=== PATIENT | female | born 1960 | race Two or more races ===

== ENCOUNTER 2018-02-21 20:44 | Emergency (ER) | payer OTHER ==
[~2018-02-21] VITALS: Ht 152.4 cm; Wt 68.0 kg
[2018-02-21 20:56] VITALS: BP 133/84
[2018-02-21 23:14] LABS: Basophils # (auto) 0.1 uL; Basophils % (auto) 1.3 % (0.0-2.0); Eosinophils # (auto) 0.3 uL; Hematocrit 41.2 % (36.0-46.0); Hemoglobin 14.5 g/dL (12.2-16.2); Lymphocytes # (auto) 4.4 uL; Lymphocytes % (auto) 43.5 % (10.0-50.0); Mean Corpuscular Hemoglobin 30.8 pg (28.0-32.0); Mean Corpuscular Hgb Conc. 35.3 g/dL (32.0-36.0); Mean Corpuscular Volume 87.5 fL (80.0-100.0); Monocytes # (auto) 0.9 uL; Monocytes % (auto) 8.5 % (0.0-12.0); Neutrophils # (auto) 4.5 uL; Neutrophils % (auto) 43.7 % (37.0-80.0); Nucleated Red Blood Cells % 0.4 %; Platelet Count (auto) 290 10^3/uL (140-450); Red Blood Cells 4.71 10^6/uL (4.0-5.20); Red Cell Distribution Width 13.1 % (11.8-14.3); White Blood Cell 10.2 10^3/uL (4.4-10.8)
[2018-02-21 23:29] LABS: Calcium 8.9 mg/dL (8.5-10.1); Chloride 106 mmol/L (98-107); Potassium 3.7 mmol/L (3.5-5.1); Sodium 139 mmol/L (136-145)
[2018-02-21 23:32] LABS: Urine Bacteria NONE SEEN /hpf (None Seen); Urine Blood Negative /uL (Negative); Urine WBC 1 /hpf (0 - 5)
[2018-02-21 23:40] LABS: Alanine Aminotransferase 21 U/L (13-56); Albumin 4.3 g/dL (3.4-5.0); Alkaline Phosphatase 102 U/L (45-117); Anion Gap 10 (5-15); Aspartate Aminotransferase 21 U/L (15-37); BUN/Creatinine Ratio 22.4; Bilirubin, Total 0.2 mg/dL (0.2-1.0); Blood Urea Nitrogen 13 mg/dL (7-18); Carbon Dioxide 23 mmol/L (21-32); GFR African American 137 mL/min; GFR Non-African American 113 mL/min; Glucose 104 mg/dL (74-106); Magnesium 1.9 mg/dL (1.6-2.6); Total Protein 7.6 g/dL (6.4-8.2)
== END 2018-02-21 23:21 | disposition left against medical advice (07) ==
LOC: ER 20:44
DX: R20.0 Anesthesia of skin (principal); M79.602 Pain in left arm; Z53.21 Procedure and treatment not carried out due to patient leaving prior to being seen by health care provider
CPT/HCPCS: 36415; 80053; 81001; 83735; 84484; 85025; 93005

== ENCOUNTER 2018-04-29 10:03 | Day surgery (SDC) | payer MEDICARE, OTHER ==
[2018-04-28 12:42] LABS: Basophils # (auto) 0.1 uL; Basophils % (auto) 0.9 % (0.0-2.0); Eosinophils # (auto) 0.2 uL; Eosinophils % (auto) 2.7 % (0.0-7.0); Hematocrit 40.5 % (36.0-46.0); Lymphocytes # (auto) 2.7 uL; Lymphocytes % (auto) 31.7 % (10.0-50.0); Mean Corpuscular Hemoglobin 30.7 pg (28.0-32.0); Mean Corpuscular Hgb Conc. 34.7 g/dL (32.0-36.0); Mean Corpuscular Volume 88.5 fL (80.0-100.0); Monocytes # (auto) 0.7 uL; Monocytes % (auto) 7.7 % (0.0-12.0); Neutrophils # (auto) 4.9 uL; Nucleated Red Blood Cells % 0.1 %; Platelet Count (auto) 290 10^3/uL (140-450); Red Blood Cells 4.57 10^6/uL (4.0-5.20); Red Cell Distribution Width 12.9 % (11.8-14.3); White Blood Cell 8.5 10^3/uL (4.4-10.8)
[2018-04-28 12:55] LABS: INR 0.96 (0.9-1.15); Partial Thromboplastin Time 29.6 sec (23.78-33.04); Prothrombin Time 10.3 sec (9.27-12.13)
[2018-04-28 13:14] LABS: BUN/Creatinine Ratio 17.7; Bilirubin, Total 0.4 mg/dL (0.2-1.0); Calcium 8.5 mg/dL (8.5-10.1); Potassium 3.8 mmol/L (3.5-5.1); Total Protein 7.4 g/dL (6.4-8.2)
[~2018-04-29] VITALS: Ht 152.4 cm; Wt 69.9 kg
[~2018-04-29 10:03] MED LIST: ALPR0.5T PO; IBUP600T27 PO
[2018-04-29] MEDS ORDERED: CLINDAMYCIN 600MG IV 50 ML IV ONE (12:15)
[2018-04-29] MEDS ORDERED: MIDAZOLAM HCL 1MG/1ML-2 ML VIAL ONE (12:47)
[2018-04-29] MEDS ORDERED: fentaNYL CITRATE 100 MCG/2 ML VL ONE (12:47)
[2018-04-29] MEDS ORDERED: BUPIVACAINE 0.75% INJ 10ML MPV SDV IJ ONE (13:41)
[2018-04-29] MEDS ORDERED: DEXAMETHASONE SOD PHOS 10MG/1ML VIAL INJ ONE (14:01)
[2018-04-29] MEDS ORDERED: PROPOFOL 10 MG/ML 20 ML IV ONE (14:01)
[2018-04-29] MEDS ORDERED: MORPHINE SULFATE 4 MG/ML SYR/VIAL IV PRN (14:15)
[2018-04-29] MEDS ORDERED: HYDROmorphone HCL 2 MG/ML VL IV PRN (14:15)
[2018-04-29] MEDS ORDERED: ONDANSETRON HCL 4 MG/2 ML VIAL IV ONE (14:15)
[2018-04-29] MEDS ORDERED: ePHEDrine SULFATE 50 MG/ML AMP IV PRN (14:15)
[2018-04-29] MEDS ORDERED: KETOROLAC TROMETH 30 MG/ML 1ML VIAL IV ONE (14:15)
[2018-04-29] MEDS ORDERED: MIDAZOLAM HCL 1MG/1ML-2 ML VIAL IV PRN (14:15)
[2018-04-29] MEDS ORDERED: LABETALOL HCL 5 MG/ML 4ML SYRINGE IV PRN (14:15)
[2018-04-29] MEDS ORDERED: methylPREDNISolone ACETATE 80 MG/ML VL ONE (14:33)
[2018-04-29 15:34] VITALS: BP 136/85
[2018-04-29] MEDS ORDERED: MORPHINE SULFATE 4 MG/ML SYR/VIAL IV ONE (16:00)
== END 2018-04-29 15:45 | disposition home or self-care (01) ==
LOC: SUR 10:03
PROVIDERS: ATTEND Podiatrist Foot & Ankle Surgery
DX: G57.62 Lesion of plantar nerve, left lower limb (principal); M19.90 Unspecified osteoarthritis, unspecified site; F41.9 Anxiety disorder, unspecified; H40.9 Unspecified glaucoma; E66.9 Obesity, unspecified; Z88.0 Allergy status to penicillin; Z79.1 Long term (current) use of non-steroidal anti-inflammatories (NSAID)
CPT/HCPCS: 36415; 64704; 80053; 85025; 85610; 85730; J1040; J1100; J1885; J2250; J2704; J3010; J3490

== ENCOUNTER 2018-08-07 16:16 | Emergency (ER) | payer MEDICARE, OTHER ==
[~2018-08-07] VITALS: Ht 152.4 cm; Wt 66.7 kg
[2018-08-07 16:28] VITALS: BP 130/75
[2018-08-07] MEDS ORDERED: KETOROLAC TROMETH 60MG/2ML VIAL IM ONE (17:15)
== END 2018-08-07 18:23 | disposition home or self-care (01) ==
LOC: ER 16:18
DX: M50.10 Cervical disc disorder with radiculopathy, unspecified cervical region (principal); M51.16 Intervertebral disc disorders with radiculopathy, lumbar region; G89.29 Other chronic pain; Z88.0 Allergy status to penicillin
CPT/HCPCS: 72040; 72100; 96372; 99284; J1885

== ENCOUNTER 2018-09-08 10:21 | Emergency (ER) | payer MEDICARE, OTHER ==
[~2018-09-08] VITALS: Ht 152.4 cm; Wt 68.0 kg
[2018-09-08] MEDS ORDERED: LEVETIRACETAM INJ 1,000 MG in D5W 5% 100 ML IV ONE (10:45)
[2018-09-08 11:34] LABS: Basophils # (auto) 0.1 uL; Basophils % (auto) 0.8 % (0.0-2.0); Eosinophils # (auto) 0.2 uL; Eosinophils % (auto) 2.8 % (0.0-7.0); Hemoglobin 13.3 g/dL (12.2-16.2); Lymphocytes # (auto) 3.1 uL; Lymphocytes % (auto) 37.5 % (10.0-50.0); Mean Corpuscular Hemoglobin 30.4 pg (28.0-32.0); Mean Corpuscular Hgb Conc. 34.3 g/dL (32.0-36.0); Mean Corpuscular Volume 88.8 fL (80.0-100.0); Monocytes # (auto) 0.8 uL; Monocytes % (auto) 9.8 % (0.0-12.0); Neutrophils # (auto) 4.1 uL; Neutrophils % (auto) 49.1 % (37.0-80.0); Platelet Count (auto) 304 10^3/uL (140-450); Red Blood Cells 4.39 10^6/uL (4.0-5.20); White Blood Cell 8.3 10^3/uL (4.4-10.8)
[2018-09-08] MEDS ORDERED: KETOROLAC TROMETH 30 MG/ML 1ML VIAL IV ONE (11:45)
[2018-09-08 11:46] LABS: Albumin 3.7 g/dL (3.4-5.0); Calcium 8.7 mg/dL (8.5-10.1); Potassium 3.8 mmol/L (3.5-5.1)
[2018-09-08 11:49] LABS: BUN/Creatinine Ratio 25.4; Bilirubin, Total 0.5 mg/dL (0.2-1.0); Total Protein 6.8 g/dL (6.4-8.2)
[2018-09-08 13:29] VITALS: BP 134/75
== END 2018-09-08 13:58 | disposition short-term general hospital (02) ==
LOC: EDBD 10:21 → ER 10:24
DX: R22.0 Localized swelling, mass and lump, head (principal); R56.9 Unspecified convulsions
CPT/HCPCS: 36415; 70450; 80053; 85025; 93005; 96365; 96366; 96375; 99285; J1885; J1953; J7060

== ENCOUNTER 2018-09-28 01:35 | Emergency (ER) | payer MEDICARE, OTHER ==
[~2018-09-28] VITALS: Ht 165.1 cm; Wt 63.5 kg
[2018-09-28 01:45] VITALS: BP 117/70
== END 2018-09-28 03:39 | disposition left against medical advice (07) ==
LOC: EDBD 01:35 → ER 01:44
DX: M25.562 Pain in left knee (principal); Z53.21 Procedure and treatment not carried out due to patient leaving prior to being seen by health care provider

== ENCOUNTER 2018-10-18 21:57 | Emergency (ER) | payer MEDICARE, OTHER ==
[~2018-10-18] VITALS: Ht 172.7 cm; Wt 72.6 kg
[2018-10-19] MEDS ORDERED: ONDANSETRON HCL 4 MG/2 ML VIAL IV ONE (01:00)
[2018-10-19] MEDS ORDERED: MORPHINE SULFATE 10 MG/ML INJ 1ML SDV IV ONE (01:00)
[2018-10-19 01:20] LABS: Basophils # (auto) 0.1 uL; Basophils % (auto) 0.8 % (0.0-2.0); Eosinophils # (auto) 0.2 uL; Eosinophils % (auto) 2.5 % (0.0-7.0); Hematocrit 36.8 % (36.0-46.0); Hemoglobin 12.6 g/dL (12.2-16.2); Lymphocytes # (auto) 3.5 uL; Lymphocytes % (auto) 41.4 % (10.0-50.0); Mean Corpuscular Hemoglobin 30.4 pg (28.0-32.0); Mean Corpuscular Hgb Conc. 34.2 g/dL (32.0-36.0); Mean Corpuscular Volume 88.8 fL (80.0-100.0); Monocytes % (auto) 11.6 % (0.0-12.0); Neutrophils # (auto) 3.7 uL; Neutrophils % (auto) 43.7 % (37.0-80.0); Nucleated Red Blood Cells % 0.1 %; Platelet Count (auto) 296 10^3/uL (140-450); Red Blood Cells 4.14 10^6/uL (4.0-5.20); Red Cell Distribution Width 12.6 % (11.8-14.3); White Blood Cell 8.4 10^3/uL (4.4-10.8)
[2018-10-19 01:26] LABS: Alanine Aminotransferase 23 U/L (13-56); Albumin 3.3 g/dL (3.4-5.0); Anion Gap 7 (5-15); Aspartate Aminotransferase 27 U/L (15-37); Blood Urea Nitrogen 18 mg/dL (7-18); Calcium 7.9 mg/dL (8.5-10.1); Carbon Dioxide 24 mmol/L (21-32); Chloride 107 mmol/L (98-107); GFR African American > 60 mL/min; GFR Non-African American > 60 mL/min; Glucose 88 mg/dL (74-106); Sodium 138 mmol/L (136-145)
[2018-10-19 01:29] LABS: Alkaline Phosphatase 74 U/L (45-117); Bilirubin, Total 0.2 mg/dL (0.2-1.0); Total Protein 6.4 g/dL (6.4-8.2)
[2018-10-19] MEDS ORDERED: LORazepam 2MG/ML-1ML VIAL IV ONE (04:00)
[2018-10-19 05:15] VITALS: BP 106/61
== END 2018-10-19 07:17 | disposition home or self-care (01) ==
LOC: EDBD 21:57 → ER 21:57
DX: R51 Headache (principal); R53.1 Weakness; G40.909 Epilepsy, unspecified, not intractable, without status epilepticus; Z85.841 Personal history of malignant neoplasm of brain; Z79.1 Long term (current) use of non-steroidal anti-inflammatories (NSAID); Z79.899 Other long term (current) drug therapy; Z88.0 Allergy status to penicillin; W01.0XXA Fall on same level from slipping, tripping and stumbling without subsequent striking against object, initial encounter; Y93.89 Activity, other specified; Y99.8 Other external cause status; Y92.89 Other specified places as the place of occurrence of the external cause
CPT/HCPCS: 36415; 70450; 70486; 72125; 80053; 85025; 96374; 96375; 99284; J2060; J2270; J2405

== ENCOUNTER 2018-10-23 23:48 | Emergency (ER) | payer MEDICARE, OTHER, MEDICAID ==
[~2018-10-23] VITALS: Ht 152.4 cm; Wt 68.0 kg
[2018-10-24 00:11] VITALS: BP 130/57
[2018-10-24] MEDS ORDERED: HYDROcodone-ACET 10/325MG TAB PO ONE (02:30)
[2018-10-24] MEDS ORDERED: KETOROLAC TROMETH 60MG/2ML VIAL IM ONE (02:30)
== END 2018-10-24 03:30 | disposition home or self-care (01) ==
LOC: ER 23:48
DX: M79.672 Pain in left foot (principal); Z88.0 Allergy status to penicillin
CPT/HCPCS: 73562; 73630; 96372

== ENCOUNTER 2018-12-18 08:12 | Inpatient (IN) | payer MEDICARE, OTHER, MEDICAID ==
[~2018-12-18] VITALS: Ht 157.5 cm; Wt 67.3 kg
[2018-12-18] MEDS ORDERED: SODIUM CHLORIDE 0.9% 1,000 ML IV ONE (08:52)
[2018-12-18] MEDS ORDERED: ONDANSETRON HCL 4 MG/2 ML VIAL IV ONE (09:00)
[2018-12-18] MEDS: MORPHINE SULFATE 4 MG/ML SYR/VIAL IV ONE ×2 (09:00→14:46)
[2018-12-18 09:06] LABS: Basophils # (auto) 0 uL; Basophils % (auto) 0.6 % (0.0-2.0); Eosinophils # (auto) 0.1 uL; Eosinophils % (auto) 2.3 % (0.0-7.0); Hematocrit 36.5 % (36.0-46.0); Hemoglobin 12.3 g/dL (12.2-16.2); Lymphocytes # (auto) 2.2 uL; Lymphocytes % (auto) 34.2 % (10.0-50.0); Mean Corpuscular Hemoglobin 29.4 pg (28.0-32.0); Mean Corpuscular Hgb Conc. 33.6 g/dL (32.0-36.0); Mean Corpuscular Volume 87.7 fL (80.0-100.0); Monocytes # (auto) 0.7 uL; Neutrophils # (auto) 3.3 uL; Neutrophils % (auto) 51.9 % (37.0-80.0); Nucleated Red Blood Cells % 0.1 %; Platelet Count (auto) 252 10^3/uL (140-450); Red Blood Cells 4.17 10^6/uL (4.0-5.20); White Blood Cell 6.4 10^3/uL (4.4-10.8)
[2018-12-18 09:24] LABS: Albumin 3.4 g/dL (3.4-5.0); BUN/Creatinine Ratio 21.3; Calcium 8.7 mg/dL (8.5-10.1)
[2018-12-18 09:29] LABS: Bilirubin, Total 0.3 mg/dL (0.2-1.0); Total Protein 6.7 g/dL (6.4-8.2)
[2018-12-18 09:36] LABS: INR 0.98 (0.9-1.15); Partial Thromboplastin Time 29.2 sec (23.78-33.04); Prothrombin Time 10.5 sec (9.27-12.13)
[2018-12-18] MEDS ORDERED: ONDANSETRON HCL 4 MG/2 ML VIAL IV PRN (15:15)
[2018-12-18] MEDS ORDERED: MORPHINE SULF INJ 2 MG/ML SYRINGE 1ML IV PRN (15:15)
[2018-12-18] MEDS ORDERED: POTASSIUM CHL 20 Meq TABLET PO ONE ×2 (15:15→15:45)
[2018-12-18] MEDS ORDERED: NITROGLYCERIN 0.4 MG SL TAB SL PRN (15:15)
[2018-12-18] MEDS: SODIUM CHLORIDE 0.9% 1,000 ML IV SCH (15:40)
[2018-12-18] MEDS: MORPHINE SULF INJ 2 MG/ML SYRINGE 1ML IV PRN (19:27)
--- NOTE | 2018-12-18 19:40 | NUR ---
Opening Shift Note Assumed care of patient, awake and alert. No S/S of distress/SOB or pain. Only one side of side rail padded. Patient refused the other side rail to be padded even after education regarding safety and seizure precaution protocol. Patient verbalized understanding, all questions and concerns addressed. Patient still refused for one of the side rails to be padded. Instructed on POC and to call for assist PRN, will continue to monitor for changes Q1hr and PRN.
--- NOTE | 2018-12-18 20:15 | NUR ---
DR. BUI AT BEDSIDE TO SEE PATIENT. CARE CONTINUED.
[2018-12-18] MEDS ORDERED: DIVA250T51 PO (20:33)
[2018-12-18] MEDS: ALPRAZolam 0.5 MG TAB PO PRN (20:33)
[2018-12-18 22:00] VITALS: BP 108/56
--- NOTE | 2018-12-18 23:00 | NUR ---
Patient agreed for finnegan catheter to be placed. Attempted to place finnegan catheter. Patient changed her mind and does not want finnegan catheter to be placed because her feet hurts when she spreads her legs. Care continued.
[2018-12-18] MEDS: CYCLOBENZAPRINE HCL 10 MG TAB PO PRN (23:57)
[2018-12-19] MEDS: SODIUM CHLORIDE 0.9% 1,000 ML IV SCH ×2 (01:15→10:38)
[2018-12-19 05:38] VITALS: BP 110/61
--- NOTE | 2018-12-19 06:00 | NUR ---
PATIENT REFUSED BLOOD DRAW AT THIS TIME. PATIENT REQUESTED FOR BLOOD TO BE DRAWN AT A LATER TIME. GUEST SPECIALIST AWARE. CARE CONTINUED.
[2018-12-19] MEDS: HYDROcodone-ACET 5/325MG TAB PO PRN ×4 (06:34→23:46)
--- NOTE | 2018-12-19 07:40 | NUR ---
OPENING NOTE Assumed care of patient from [facility] RN, Lashell. Patient resting in bed with eyes closed, even rise and fall of chest noted. No S/S of distress/SOB or pain. Bed in lowest, locked position with side rails up x3. Fall/seizure precautions in place and call light within reach. Will continue to monitor for changes Q1hr and PRN.
[2018-12-19 08:00] VITALS: BP 124/57
[2018-12-19] MEDS ORDERED: MAGNESIUM CITRATE SOLUTION 300 ML BTL PO ONE (08:00)
[2018-12-19 09:15] LABS: Basophils # (auto) 0.1 uL; Basophils % (auto) 0.6 % (0.0-2.0); Eosinophils # (auto) 0.2 uL; Eosinophils % (auto) 2.4 % (0.0-7.0); Hematocrit 36.5 % (36.0-46.0); Hemoglobin 12.4 g/dL (12.2-16.2); Lymphocytes # (auto) 3.1 uL; Lymphocytes % (auto) 36.1 % (10.0-50.0); Mean Corpuscular Hemoglobin 29.7 pg (28.0-32.0); Mean Corpuscular Hgb Conc. 33.9 g/dL (32.0-36.0); Mean Corpuscular Volume 87.7 fL (80.0-100.0); Monocytes # (auto) 0.9 uL; Monocytes % (auto) 10.8 % (0.0-12.0); Neutrophils # (auto) 4.3 uL; Neutrophils % (auto) 50.1 % (37.0-80.0); Platelet Count (auto) 248 10^3/uL (140-450); Red Blood Cells 4.16 10^6/uL (4.0-5.20); Red Cell Distribution Width 12.7 % (11.8-14.3); White Blood Cell 8.6 10^3/uL (4.4-10.8)
[2018-12-19 09:36] LABS: Albumin 3.1 g/dL (3.4-5.0); BUN/Creatinine Ratio 16.2; Calcium 8.4 mg/dL (8.5-10.1); Magnesium 1.9 mg/dL (1.6-2.6); Potassium 4.1 mmol/L (3.5-5.1)
[2018-12-19 09:38] LABS: Bilirubin, Total 0.3 mg/dL (0.2-1.0); Total Protein 6.5 g/dL (6.4-8.2)
[2018-12-19] MEDS: POLYETHYLENE GLYCOL 17 GM PWDR PO SCH (10:38)
[2018-12-19] MEDS: MAGNESIUM OXIDE 400 MG TAB PO SCH (10:38)
[2018-12-19 12:00] VITALS: BP 111/57
--- NOTE | 2018-12-19 12:38 | NUR ---
PAGED Patient has ordered MRI. States that she needs something to "calm her down" in order do the test. Dr. Beckman paged to get order for one time dose of Ativan. Awaiting call back.
--- NOTE | 2018-12-19 12:53 | NUR ---
MRI Per [employer] technicianEverett maurer, patient refused MRI.
--- NOTE | 2018-12-19 13:52 | NUR ---
MRI Per Dr. Beckman, would prefer for patient to proceed with MRI. Spoke with patient again, states that she will go forward with exam if she receives Ativan.
[2018-12-19] MEDS ORDERED: LORazepam 2MG/ML-1ML VIAL IV ONE (14:00)
[2018-12-19] MEDS ORDERED: GADOPENTETATE DIMEGLUMINE (10MMOL/20 ML) VIAL IV ONE (14:01)
--- NOTE | 2018-12-19 14:15 | NUR ---
OFF UNIT Patient taken off unit via bed for MRI after administration of Ativan given.
--- NOTE | 2018-12-19 14:58 | NUR ---
RETURN TO UNIT Patient returned to unit. No S/S of distress noted.
[2018-12-19] MEDS: MORPHINE SULF INJ 2 MG/ML SYRINGE 1ML IV PRN (16:02)
--- NOTE | 2018-12-19 16:30 | NUR ---
Finnegan catheter insertion Patient assessed and determined to be in need of finnegan catheter. Order obtained from MD. Patient educated on catheter and reason for insertion. All questions answered. Finnegan catheter 14 gauge Slovenian inserted with clean sterile technique. Patient tolerated well.
[2018-12-19 16:59] LABS: Creatinine, Urine 28 mg/dL (30.0-125.0); Sodium Urine 113 mmol/L (40-220)
[2018-12-19 17:00] VITALS: BP 123/62
[2018-12-19 17:08] LABS: Urine Bacteria FEW /hpf (None Seen); Urine Blood 1+ /uL (Negative); Urine Budding Yeast FEW /hpf (None Seen); Urine Mucus FEW (None Seen); Urine Specific Gravity 1.013 (1.001-1.035); Urine WBC 221 /hpf (0 - 5)
--- NOTE | 2018-12-19 20:20 | NUR ---
Opening Shift Note Assumed care of patient, awake and alert. Patient noted to be restless and complained of having intense discomfort and burning at the Campos Catheter insertion site. She stated she wanted the F/C removed ELISSA due to the discomfort.. Patient was advised that it was the MD's orders to have F/C inserted. Patient verbalized understanding, but insisted on having F/C removed. F/C removed using sterile technique. Patient tolerated procedure will. 350cc of yellow urine noted in F/C drainage bag. Will continue to monitor for changes Q1hr and PRN.
[2018-12-19 21:40] VITALS: BP 125/79
[2018-12-19] MEDS: CYCLOBENZAPRINE HCL 10 MG TAB PO PRN (21:48)
[2018-12-19] MEDS: ALPRAZolam 0.5 MG TAB PO PRN (21:52)
--- NOTE | 2018-12-19 22:00 | NUR ---
Patient has requested the use of the bed levy multiple times with urinary output. Patient states she apologizes for requesting to have her F/C removed and thought it would be best to have it re-inserted. Patient informed that her urinary output would be monitored and will inform MD of her current status.
[2018-12-20] MEDS: SODIUM CHLORIDE 0.9% 1,000 ML IV SCH ×4 (00:46→21:43)
[2018-12-20] MEDS: HYDROcodone-ACET 5/325MG TAB PO PRN ×3 (03:04→17:36)
[2018-12-20 04:55] VITALS: BP 120/69
[2018-12-20] MEDS: MORPHINE SULF INJ 2 MG/ML SYRINGE 1ML IV PRN ×3 (05:45→20:23)
--- NOTE | 2018-12-20 07:40 | NUR ---
OPENING NOTE Assumed care of patient from NOC RN. Patient resting in bed with eyes closed, even rise and fall of chest note. No S/S of distress/SOB or pain. Bed in lowest, locked position with side rails up x2. Fall/seizures precautions in place. Will continue to monitor for changes Q1hr and PRN.
[2018-12-20 08:16] LABS: Basophils # (auto) 0 uL; Basophils % (auto) 0.8 % (0.0-2.0); Eosinophils # (auto) 0.2 uL; Eosinophils % (auto) 2.6 % (0.0-7.0); Hematocrit 35.8 % (36.0-46.0); Hemoglobin 12.3 g/dL (12.2-16.2); Lymphocytes # (auto) 2.7 uL; Lymphocytes % (auto) 42.7 % (10.0-50.0); Mean Corpuscular Hemoglobin 29.7 pg (28.0-32.0); Mean Corpuscular Hgb Conc. 34.3 g/dL (32.0-36.0); Mean Corpuscular Volume 86.8 fL (80.0-100.0); Monocytes # (auto) 0.7 uL; Monocytes % (auto) 10.5 % (0.0-12.0); Neutrophils # (auto) 2.8 uL; Neutrophils % (auto) 43.4 % (37.0-80.0); Nucleated Red Blood Cells % 0.1 %; Platelet Count (auto) 237 10^3/uL (140-450); Red Blood Cells 4.13 10^6/uL (4.0-5.20); Red Cell Distribution Width 12.9 % (11.8-14.3); White Blood Cell 6.4 10^3/uL (4.4-10.8)
[2018-12-20 08:30] LABS: Albumin 3.1 g/dL (3.4-5.0); BUN/Creatinine Ratio 14.7; Calcium 8.5 mg/dL (8.5-10.1); Magnesium 1.9 mg/dL (1.6-2.6); Potassium 3.8 mmol/L (3.5-5.1)
[2018-12-20 08:33] LABS: Bilirubin, Total 0.3 mg/dL (0.2-1.0); Total Protein 6.5 g/dL (6.4-8.2)
[2018-12-20] MEDS: POLYETHYLENE GLYCOL 17 GM PWDR PO SCH (10:29)
[2018-12-20] MEDS: MAGNESIUM OXIDE 400 MG TAB PO SCH (10:29)
[2018-12-20] MEDS ORDERED: MAGNESIUM CITRATE SOLUTION 300 ML BTL PO ONE (14:45)
--- NOTE | 2018-12-20 19:21 | NUR ---
CLOSING NOTE Endorsed care of patient to NOC Tami WHITE.
--- NOTE | 2018-12-20 21:20 | NUR ---
Campos catheter insertion Patient assessed and determined to be in need of Campos catheter. Order obtained from Dr.Milani CHRISTIAN. Patient educated on catheter and reason for insertion. All questions answered. Campos catheter 16 gauge Hungarian inserted with clean sterile technique. Patient tolerated well. 100cc cloudy straw colored urine noted in Campos bag upon insertion.
[2018-12-20] MEDS: CYCLOBENZAPRINE HCL 10 MG TAB PO PRN (21:43)
[2018-12-20 22:00] VITALS: BP 144/77
[2018-12-20] MEDS ORDERED: LEVOFLOXACIN 500MG 100 ML IV ONE (22:00)
[2018-12-21] MEDS: ALPRAZolam 0.5 MG TAB PO PRN (00:22)
[2018-12-21] MEDS: MORPHINE SULF INJ 2 MG/ML SYRINGE 1ML IV PRN (02:29)
[2018-12-21 05:03] VITALS: BP 137/68
[2018-12-21] MEDS: HYDROcodone-ACET 5/325MG TAB PO PRN ×2 (05:12→18:10)
[2018-12-21 08:49] LABS: Basophils # (auto) 0 uL; Basophils % (auto) 0.6 % (0.0-2.0); Eosinophils # (auto) 0.2 uL; Eosinophils % (auto) 3.1 % (0.0-7.0); Hematocrit 37.1 % (36.0-46.0); Hemoglobin 12.7 g/dL (12.2-16.2); Lymphocytes % (auto) 31.3 % (10.0-50.0); Mean Corpuscular Hemoglobin 29.7 pg (28.0-32.0); Mean Corpuscular Hgb Conc. 34.4 g/dL (32.0-36.0); Mean Corpuscular Volume 86.5 fL (80.0-100.0); Monocytes # (auto) 0.6 uL; Monocytes % (auto) 9.2 % (0.0-12.0); Neutrophils # (auto) 3.6 uL; Neutrophils % (auto) 55.8 % (37.0-80.0); Nucleated Red Blood Cells % 0.1 %; Platelet Count (auto) 241 10^3/uL (140-450); Red Blood Cells 4.28 10^6/uL (4.0-5.20); Red Cell Distribution Width 13.1 % (11.8-14.3); White Blood Cell 6.4 10^3/uL (4.4-10.8)
[2018-12-21 09:00] VITALS: BP 99/61
--- NOTE | 2018-12-21 09:00 | NUR ---
ss consult to [facility] for dme
[2018-12-21 09:06] LABS: Albumin 3.4 g/dL (3.4-5.0); Calcium 8.6 mg/dL (8.5-10.1); Magnesium 2.1 mg/dL (1.6-2.6)
[2018-12-21 09:09] LABS: BUN/Creatinine Ratio 15.4; Bilirubin, Total 0.3 mg/dL (0.2-1.0); Total Protein 6.8 g/dL (6.4-8.2)
[2018-12-21] MEDS: MAGNESIUM OXIDE 400 MG TAB PO SCH (10:27)
[2018-12-21] MEDS: POLYETHYLENE GLYCOL 17 GM PWDR PO SCH (10:27)
[2018-12-21 12:08] LABS: Free T4 (Free Thyroxine) 0.63 ng/dL (0.89-1.76); Prolactin 48.16 ng/mL (2.8-29.2)
[2018-12-21 13:00] VITALS: BP 97/64
--- NOTE | 2018-12-21 14:03 | NUR ---
SS order, shower seat not covered by medicare
[2018-12-21] MEDS: SODIUM CHLORIDE 0.9% 1,000 ML IV SCH (14:09)
[2018-12-21 17:08] VITALS: BP 97/64
[2018-12-21 17:11] VITALS: BP 104/61
--- NOTE | 2018-12-21 20:14 | NUR ---
Discharge instructions given as ordered. Encourage to follow up with PMD as instructed. All questions and concerns addressed. Patient verbalized understanding. Medication reconciliation form completed and copy given to patient. IV removed with catheter intact, pressure dressing applied, finnegan catheter removed. Telemetry unit returned to ICU. Patient taken to taxi vehicle via wheelchair with all personal belongings, accompanied by staff. No distress noted at time of departure.
--- NOTE | 2018-12-21 20:15 | NUR ---
PATIENT NOTED TO BE VERY WEAK. DAY RN AWARE AND STATES DR IS ALSO AWARE BUT PATIENT BEING DISCHARGED VIA [facility]. FAMILY UNAVAILABLE AND DAY RN STATES WILL NOT COME TO THE HOSPITAL TO PICK HER UP. PATIENT NOTED TO BE VERY WEAK AND UNABLE TO AMBULATE. EXPRESSED CONCERN ABOUT WHO WILL TAKE CARE OF HER AND HELP HER INTO HER HOME. PATIENT ASSURED ME THAT HER SON WILL HELP HER INTO THE HOUSE. SHE TRIED TO CALL HIM BUT HE DID NOT ANSWER. SHE SAID THAT HE IS PROBABLY MAKING DINNER AND CANNOT HEAR THE PHONE BUT ASSURED ME THAT HE IS AT HOME. SHE SAID "HE LIVES THERE AND HE'S COOKING AND CAN'T HEAR THE PHONE. BUT HE WILL BE HOME WHEN TO HELP ME WHEN I GET THERE". CHARGE AWARE THAT PATIENT IS UNABLE TO AMBULATE. SUGGESTED ASKING SECURITY TO ASSIST GETTING PATIENT INTO THE [facility] WHEN THEY ARRIVE. CALLED SECURITY AND THEY AGREED TO ASSIST.
[2018-12-21] MEDS ORDERED: LEVOFLOXACIN 500MG 100 ML IV SCH (21:00)
== END 2018-12-21 20:45 | disposition home or self-care (01) | DRG 392 ==
LOC: EDBD 08:12 → ER 08:12 → TELE 15:22 → TELE-WESTW 17:56
PROVIDERS: ADMIT Internal Medicine; ATTEND Internal Medicine
DX: K59.03 Drug induced constipation (principal); M19.90 Unspecified osteoarthritis, unspecified site; R19.7 Diarrhea, unspecified; F32.9 Major depressive disorder, single episode, unspecified; G89.29 Other chronic pain; R35.8 Other polyuria; F41.0 Panic disorder [episodic paroxysmal anxiety]; G40.909 Epilepsy, unspecified, not intractable, without status epilepticus; T40.2X5A Adverse effect of other opioids, initial encounter; R11.2 Nausea with vomiting, unspecified; Z88.0 Allergy status to penicillin; Y92.89 Other specified places as the place of occurrence of the external cause; Z85.858 Personal history of malignant neoplasm of other endocrine glands; Z82.49 Family history of ischemic heart disease and other diseases of the circulatory system; Z82.3 Family history of stroke; Z79.899 Other long term (current) drug therapy
CPT/HCPCS: 36415; 70553; 71045; 74021; 80053; 81001; 82533; 82570; 83735; 83935; 84100; 84146; 84300; 84439; 84443; 84484; 85025; 85610; 85730; 93005; 94761; 95819; 96361; 96374; 96375; G0378; J1956; J2405